=== PATIENT | male | born 1930 | race Caucasian/White ===

== ENCOUNTER → 2017-01-08 | Outpatient (CLI) | payer MEDICARE, OTHER ==
[~2017-01-08] MED LIST: CALCIUM 500 +1 EAC2 PO; CARDIZEM SR60 MG PO; COLACE100 MG PO; COZAAR100 MG PO; ECOTRIN325 MG PO; FISH OIL 1,0001 EAC1 PO; FLAGYL500 M1 PO; IMDUR30 MG PO; IMODIUM A-D2 MG PO; LANTUS SOL100 UNIT/1 SUB-Q; LASIX20 MG PO; MAG-OX-400(241400 MG PO; NEURONTIN300 MG PO; NITROSTAT0.4 MG SL; NOVOLOG FL100 UNIT/1 SUB-Q; PRAVACHOL80 MG PO; PROTONIX40 MG PO; THERAGRAN-M1 TAB PO; TOPROL XL 5050 MG PO; TYLENOL325 MG PO; ZOFRAN4 MG PO; ZOLOFT50 MG PO
[2017-01-08 11:04] LABS: ALBUMIN 3.5 gm/dL (3.5-5.0); ANION GAP 10.9 (10.0-19.0); BLOOD UREA NITROGEN 16 mg/dL (6-24); CALCIUM 8.4 mg/dL (8.5-10.5); CHLORIDE 108 mMol/L (96-110); CO2 27 mMol/L (22-32); CPK 152 IU/L (35-332); CREATININE 1.2 mg/dL (0.6-1.3); MAGNESIUM 1.7 mg/dL (1.8-2.6); PHOSPHORUS 2.4 mg/dL (2.5-4.9); POTASSIUM 3.9 mMol/L (3.7-5.1); SODIUM 142 mMol/L (135-145)
[2017-01-08 12:26] LABS: BASOPHIL # 0.1 K/uL (0.0-0.2); BASOPHIL % 0.8 %; EOSINOPHIL # 0.4 K/uL (0.0-0.5); EOSINOPHIL % 5.1 %; HEMATOCRIT 40.4 % (33.0-50.0); HEMOGLOBIN 13.9 g/dL (11.0-16.0); IMMATURE GRANULOCYTE % 0.4 %; LYMPHOCYTE # 1.9 K/uL (0.8-4.0); LYMPHOCYTE % 26.9 %; MCHC 34.4 gm/dL (32.0-36.5); MCV 92.9 fl (83.0-98.0); MONOCYTE # 0.6 K/uL (0.0-1.0); MONOCYTE % 7.6 %; MPV 9.5 fl (9.4-12.4); NEUTROPHIL # (ANC) 4.3 K/uL (1.4-9.0); NEUTROPHIL % 59.2 %; NRBC % 0 /100WBC (0-0.00); PLATELET COUNT 172 K/uL (150-450); RBC 4.35 M/uL (3.50-5.50); RDW-CV 12.2 % (11.9-14.6); WBC 7.2 K/uL (4.0-11.0)
== END ==
LOC: LCNC 10:31
PROVIDERS: Nurse Practitioner Acute Care
DX: R07.9 Chest pain, unspecified (principal)